=== PATIENT | female | born 1970 | race Caucasian/White ===

== ENCOUNTER → 2016-08-08 | Outpatient (CLI) | payer BC, OTHER | LOC: FIMAGING 08:44 | PROVIDERS: ATTEND Family Medicine | DX: M50.81 Other cervical disc disorders, high cervical region (principal); M50.822 Other cervical disc disorders at C5-C6 level; M50.823 Other cervical disc disorders at C6-C7 level ==

== ENCOUNTER → 2016-12-01 | Outpatient (CLI) | payer BC, OTHER | LOC: FIMAGING 10:13 | PROVIDERS: ATTEND Nurse Practitioner Women's Health | DX: Z12.31 Encounter for screening mammogram for malignant neoplasm of breast (principal); Z80.3 Family history of malignant neoplasm of breast | CPT/HCPCS: G0202 ==